=== PATIENT | female | born 1960 | race African-American/Black ===

== ENCOUNTER 2019-03-16 16:08 | Inpatient (IN) | payer OTHER ==
[2019-03-16 18:56] VITALS: BMI 25.7
--- NOTE | 2019-03-16 21:18 | HP ---
COWS - Scale Resting Pulse: 0= [place] 80 or Below Sweatin= Chills/Flushing Restless Observation: 0= Sits Still Pupil Size: 0= Normal to Room Light Bone or Joint Aches: 4=Acute Joint/Muscle Pain Runny Nose/ Eye Tearin= Runny Nose/Eyes GI Upset > 30mins: 2= Nausea/Diarrhea Tremor Observation: 0= None Yawning Observation: 2= >3x During Session Anxiety or Irritability: 0= None Goose Flesh Skin: 0=Smooth Skin COWS Score: 11 CIWA Score - Admission Criteria OASAS Guidelines: Admission for Medically Managed Detox: Requires at least one of the followin. CIWA greater than 12 2. Seizures within the past 24 hours 3. Delirium tremens within the past 24 hours 4. Hallucinations within the past 24 hours 5. Acute intervention needed for co occurring medical disorder 6. Acute intervention needed for co occurring psychiatric disorder 7. Severe withdrawal that cannot be handled at a lower level of care (continued vomiting, continued diarrhea, abnormal vital signs) requiring intravenous medication and/or fluids 8. Admitting History and Physical - Past Medical History Cardiovascular: Yes: HTN Infectious Disease: Yes: HIV Psych: Yes: Addictions, Bipolar - Smoking History Smoking history: Current every day smoker Have you smoked in the past 12 months: Yes Aproximately how many cigarettes per day: 4 - Alcohol/Substance Use Hx Alcohol Use: Yes Number of Drinks Daily: 2 History of Substance Use: reports: Cocaine, Heroin, Marijuana, Prescription - Social History ADL: Independent History of Recent Travel: No Admission ROS [facility] Chief Complaint: SEEKING DETOX Allergies/Adverse Reactions: Allergies Allergy/AdvReac Type Severity Reaction Status Date / Time No Known Allergies Allergy Verified 03/16/19 18:49 History of Present Illness: HERE FOR SUBOXONE DETOX. CLIENT IS REFERRED BY [facility]. FIRST ADMISSION HERE. PRESNTS WITH C/O WITHDRAWAL SX'S. SEEKING DETOX WITH METHADONE SHE WOULD LIKE TO GET ON A METHADONE PROGRAM. DENIES HX/O DRUG OVERDOSE, SEIZURE, BLACK OUTS. SHE REPORTS COCAINE ABUSE. HX/O IVDU A FEW YEARS AGO. . REPORTS SHE WAS INCARCERATED FOR 8.5 YEARS RELEASED 4 WEEKS AGO AND STARTED USING STREET SUBOXONE. PATIENT LIVES WITH [employer], UNEMPLOYED, [place]. Exam Limitations: No Limitations - Ebola screening Have you traveled outside of the country in the last 21 days: No (N) Have you had contact with anyone from an Ebola affected area: No Do you have a fever: No - Review of Systems Constitutional: Chills, Malaise, Night Sweats EENT: reports: Other (TOP DENTURES) Respiratory: reports: No Symptoms reported Cardiac: reports: No Symptoms Reported GI: reports: Abdominal cramping : reports: Incontinence Musculoskeletal: reports: Back Pain Integumentary: reports: No Symptoms Reported Neuro: reports: No Symptoms reported Endocrine: reports: Other (HX/O DM) Hematology: reports: No Symptoms Reported Psychiatric: reports: Orientated x3, Depressed (DENIES SI/HI) Other Systems: Reviewed and Negative Patient History - Patient Medical History Hx Anemia: No Hx Asthma: No Hx Chronic Obstructive Pulmonary Disease (COPD): No Hx Cancer: No Hx Cardiac Disorders: No Hx Congestive Heart Failure: No Hx Hypertension: Yes Hx Hypercholesterolemia: No Hx Pacemaker: No HX Cerebrovascular Accident: No Hx Seizures: No Hx Dementia: No Hx Diabetes: Yes Hx Gastrointestinal Disorders: No Hx Liver Disease: No Hx Genitourinary Disorders: Yes (INCONTINENCE) Hx Sexually Transmitted Disorders: No Hx Renal Disease (ESRD): No Hx Thyroid Disease: No Hx Human Immunodeficiency Virus (HIV): Yes (IVDU- DX 1987) Hx Hepatitis C: Yes (TX'ED) Hx Depression: Yes Hx Suicide Attempt: No Hx Bipolar Disorder: Yes Hx Schizophrenia: No Other Medical History: DENIES - Patient Surgical History Past Surgical History: No - PPD History Previous Implant?: Yes Documented Results: Negative w/o proof Implanted On Prior R Admission?: No PPD to be Administered?: No - Reproductive History LMP comment: MENAPAUSE Patient : No (NEG [facility]) - Smoking Cessation Smoking history: Current every day smoker Have you smoked in the past 12 months: Yes Aproximately how many cigarettes per day: 4 Cigars Per Day: 0 Hx Chewing Tobacco Use: No Initiated information on smoking cessation: Yes 'Breaking Loose' booklet given: 03/16/19 - Substance & Tx. History Hx Alcohol Use: No Hx Substance Use: Yes Substance Use Type: Opiates (SUBOXONE) Hx Substance Use Treatment: Yes ([facility]) - Substances abused Cocaine Amount used: 8 VIALS Age of first use: 19 Date of last use: 03/16/19 Crack Substance route: Smoking Frequency: Daily Amount used: 8 VIALS Age of first use: 19 Date of last use: 03/16/19 Buprenorphine Other (specify): 12mg Substance route: Oral Frequency: Daily Amount used: 10 film Age of first use: 51 Date of last use: 03/16/19 Admission Physical Exam S - Vital Signs Vital Signs: Vital Signs - 24 hr 03/16/19 18:51 Temperature 98.6 F Pulse Rate 69 Respiratory 20 Rate Blood Pressure 141/86 - Physical General Appearance: Yes: Mild Distress, Tremorous (FELT), Other ([place]) HEENTM: Yes: EOMI, Normocephalic, Normal Voice, ANDREA, Other Respiratory: Yes: Chest Non-Tender, Lungs Clear, Normal Breath Sounds, No Respiratory Distress, No Accessory Muscle Use Neck: Yes: No masses,lesions,Nodules, Supple, Trachea in good position Breast: Yes: Breasts Symetrical Cardiology: Yes: Regular Rhythm, Regular Rate Abdominal: Yes: Non Tender, Soft, Increased Bowel Sounds Genitourinary: Yes: Within Normal Limits Back: Yes: Normal Inspection Musculoskeletal: Yes: full range of Motion, Gait Steady Extremities: Yes: Normal Capillary Refill, Normal Inspection, Normal Range of Motion, Non-Tender Neurological: Yes: Fully Oriented, Alert, Depressed Affect Integumentary: Yes: Normal Color, Dry, Warm Lymphatic: Yes: Within Normal Limits - Diagnostic (1) Opioid dependence with withdrawal Current Visit: Yes Status: Acute (2) Cocaine dependence, uncomplicated Current Visit: Yes Status: Acute (3) HCV (hepatitis C virus) Current Visit: Yes Status: Resolved Comment: TREATED (4) HIV (human immunodeficiency virus infection) Current Visit: Yes Status: Chronic Qualifiers: HIV symptom status: unspecified Qualified Code(s): B20 - Human immunodeficiency virus [HIV] disease (5) Incontinence in female Current Visit: Yes Status: Chronic (6) Diabetes Current Visit: Yes Status: Chronic Qualifiers: Diabetes mellitus type: type 2 Comment: CLIENT REPORTS LANTUS 6 UNIT Q HS. HAS NOT TAKEN IN 1 MONTH (7) HTN (hypertension) Current Visit: Yes Status: Chronic Qualifiers: Hypertension type: essential hypertension Qualified Code(s): I10 - Essential (primary) hypertension (8) Psychiatric disorder Current Visit: Yes Status: Chronic (9) Depressed affect Current Visit: Yes Status: Acute Cleared for Admission S - Detox or Rehab [facility] Level of Care: Medically Managed Detox Regimen/Protocol: Methadone Claeared for Rehab Admission: No Breathalyzer - Breathalyzer Breathalyzer: 0 Urine Drug Screen - Test Device Lot number: [id number] Expiration date: 11/01/20 - Control Is test valid?: Yes - Results Drug screen NEGATIVE: No Urine drug screen results: DOMINICK-Cocaine, BUP-Suboxone Inpatient Rehab Admission - Rehab Decision to Admit Inpatient rehab admission?: No
[2019-03-16] MEDS ORDERED: MAG HYDROX/AL HYDROX/SIMETH 30 ML UNIT-DOSE CUP PO PRN (21:36)
[2019-03-16] MEDS ORDERED: MAGNESIUM CITRATE 300 ML BOTTLE PO PRN (21:36)
[2019-03-16] MEDS ORDERED: DICYCLOMINE HCL 10 MG CAPSULE PO PRN (21:36)
[2019-03-16] MEDS ORDERED: IBUPROFEN 400 MG TABLET (FP) PO PRN (21:36)
[2019-03-16] MEDS ORDERED: MAGNESIUM HYDROX 2400MG/30ML ORAL SUSPENSION 30 ML CUP PO PRN (21:36)
[2019-03-16] MEDS ORDERED: guaiFENesin 200 MG/10 ML 10 ML UNIT-DOSE CUPS PO PRN (21:36)
[2019-03-16] MEDS ORDERED: MENTHOL/PHENOL 1 EACH UD MM PRN (21:36)
[2019-03-16] MEDS ORDERED: ONDANSETRON *ODT* 4 MG TABLET SL PRN (21:36)
[2019-03-16] MEDS ORDERED: P-EPHED 60MG/TRIPROLIDI 2.5MG TABLET PO PRN (21:36)
[2019-03-16] MEDS ORDERED: BISMUTH SUBSALICYLATE 524 MG/30 ML UD PO PRN (21:36)
[2019-03-16] MEDS ORDERED: hydrOXYzine PAMOATE 25 MG CAPSULE (FP) PO PRN (21:36)
[2019-03-16] MEDS ORDERED: ACETAMINOPHEN 325 MG TABLET (FP) PO PRN ×2 (21:36)
[2019-03-16] MEDS ORDERED: METHOCARBAMOL 500 MG TABLET PO PRN (21:36)
[2019-03-16] MEDS ORDERED: METHADONE HCL 10 MG TABLET (FOR DETOX USE ONLY) PO ONE (21:45)
[2019-03-16] MEDS ORDERED: cloNIDine HCL 0.1 MG TABLET PO PRN (21:45)
[2019-03-16] MEDS: THIAMINE HCL 100 MG TABLET (FP) PO SCH (23:03)
[2019-03-17] MEDS ORDERED: METHADONE HCL 10 MG TABLET (FOR DETOX USE ONLY) ONE (09:14)
[2019-03-17] MEDS ORDERED: METHADONE HCL 5 MG TABLET (FOR DETOX USE ONLY) ONE (09:14)
[2019-03-17] MEDS ORDERED: METHADONE (DETOX) 20 MG, METHADONE (DETOX) 5 MG PO ONE (10:00)
--- NOTE | 2019-03-17 10:12 | PN ---
BHS COWS - Scale Resting Pulse: 1= [place] 81-100 Sweatin= Chills/Flushing Restless Observation: 1= Difficult to Sit Still Pupil Size: 1= Pupils >than Normal Bone or Joint Aches: 1= Mild Discomfort Runny Nose/ Eye Tearin= Nasal Congestion GI Upset > 30mins: 0= None Tremor Observation of Outstretched Hands: 0= None Yawning Observation: 0= None Anxiety or Irritability: 1=Feels Anxious/Irritable Goose Flesh Skin: 0=Smooth Skin COWS Score: 7 BHS Progress Note (SOAP) Subjective: Pt here for detox- was taking large quanitites of suboxone- switched to methadone detox, would like to go to methadone MAT O: Vital Signs - 24 hr 03/16/19 03/17/19 03/17/19 18:51 00:30 03:30 Temperature 98.6 F Pulse Rate 69 Respiratory 20 18 18 Rate Blood Pressure 141/86 03/17/19 06:00 Temperature 98.2 F Pulse Rate 57 L Respiratory 18 Rate Blood Pressure 125/78 labs pending a/p: OUD- continue methadone detox
--- NOTE | 2019-03-17 10:23 | EKG ---
Test Reason : Blood Pressure : / mmHG Vent. Rate : 062 BPM Atrial Rate : 062 BPM P-R Int : 158 ms QRS Dur : 084 ms QT Int : 442 ms P-R-T Axes : 074 040 044 degrees QTc Int : 448 ms NORMAL SINUS RHYTHM NORMAL ECG NO PREVIOUS ECGS AVAILABLE Confirmed by DENIA DE SOUZA MD ([id number]) on 03/17/2019 10:22:56 AM Referred By: Confirmed By:DENIA DE SOUZA MD
[2019-03-17] MEDS: PRENATAL VITAMINS W/ FOLIC ACID TABLET (FP) PO SCH (10:38)
[2019-03-17 10:39] LABS: HEMATOCRIT 36.7 % (32.4-45.2); HEMOGLOBIN 12.2 GM/dL (10.7-15.3); MCH 29.9 pg (25.7-33.7); MCHC 33.2 g/dl (32.0-36.0); MEAN CELL VOLUME 90.2 fl (80-96); MEAN PLT VOLUME 8.4 fl (7.5-11.1); PLATELET COUNT 240 K/MM3 (134-434); RBC 4.06 M/mm3 (3.60-5.2); RDW 12.8 % (11.6-15.6); WHITE BLOOD COUNT 4.8 K/mm3 (4.0-10.0)
[2019-03-17] MEDS: LISINOPRIL 5 MG TABLET (FP) PO SCH (10:39)
[2019-03-17 10:45] LABS: ALBUMIN 3.3 g/dl (3.4-5.0); BILIRUBIN,TOTAL 0.2 mg/dL (0.2-1); BLOOD UREA NITROGEN 14.9 mg/dL (7-18); CALCIUM 9.3 mg/dL (8.5-10.1); POTASSIUM 4.3 mmol/L (3.5-5.1); TOT PROT 6.8 g/dl (6.4-8.2)
[2019-03-17] MEDS: OXYBUTYNIN CHLORIDE 5 MG TABLET PO SCH (11:08)
--- NOTE | 2019-03-17 15:38 | CONSULT ---
[facility] Psychiatric Consult - Data Date of interview: 03/17/19 Admission source: [facility] Identifying data: First admission to [facility] for this 59 y/o AA female self- referred for detoxification. REJI issues : heroin, cocaine, cannabis, nicotine. Interviewed at [address] [place] [address]. Patient is single, mother of one, [facility] unemployed and supported on welfare ( [employer]). Substance Abuse History: Discussed with patient. Details in current [facility] report as follows : Smoking history: Current every day smoker. Have you smoked in the past 12 months: Yes. Aproximately how many cigarettes per day: 4. Cigars Per Day: 0. Hx Chewing Tobacco Use: No. Initiated information on smoking cessation : Yes. 'Breaking Loose' booklet given: 03/16/19. - Substance & Tx. History. Hx Alcohol Use: No. Hx Substance Use: Yes. Substance Use Type: Opiates ( SUBOXONE). [facility]x [facility] - Substances abused. Cocaine. Amount used: 8 VIALS. Age of first use: 19. Date of last use: 03/16/19. Crack. Substance route: Smoking. Frequency: Daily. Amount used: 8 VIALS. Age of first use: 19. Date of last use: 03/16/19. Buprenorphine. Other (specify): 12mg. Substance route: Oral. Frequency: Daily. Amount used: 10 film. Age of first use: 51. Date of last use: 03/16/19 Medical History: Medical profile is remarkable for diabetes mellitus, HIV infection since 1987 and hypertension. Psychiatric History: No reported history of psychiatric hospitalizations. Patient reports that she has been diagnosed with Bipolar Disorder and maintained on a regimen of wellbutrin + abilify + trileptal (doses not recalled) . Ms Callahan indicates past psychiatric follow-up at an unnamed [facility]PD clinic in [place] ([id number]). Lost to OPD care at this time. Has received psychotropic medications (listed above) during her incarceration (was released robin last month). Patient denies history of suicide attempts. 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 Set for parole until 2023. Additional Comment: Urine drug screen results: DOMINICK-Cocaine, BUP-Suboxone. Noted. Mental Status Exam - Mental Status Exam Alert and Oriented to: Time, Place, Person Cognitive Function: Good Patient Appearance: Well Groomed Mood: Withdrawn, Hopeful Affect: Mood Congruent, Constricted Patient Behavior: Fatigued, Appropriate, Cooperative Speech Pattern: Clear, Appropriate Voice Loudness: Normal Thought Process: Intact, Goal Oriented Thought Disorder: Not Present Hallucinations: Denies Suicidal Ideation: Denies Homicidal Ideation: Denies Insight/Judgement: Poor Sleep: Poorly, Difficulty falling asleep Appetite: Good Gait/Station: Normal Psychiatric Findings - Problem List ([place] 1, 2,3) (1) Opioid dependence with withdrawal Current Visit: Yes Status: Acute (2) Cocaine dependence, uncomplicated Current Visit: Yes Status: Chronic (3) Nicotine dependence Current Visit: Yes Status: Chronic (4) Substance induced mood disorder Current Visit: Yes Status: Chronic (5) Bipolar disorder Current Visit: Yes Status: Chronic Comment: As per self-report. - Initial Treatment Plan Initial Treatment Plan: Psychoeducation. Sleep hygiene. Detoxification. Support. Contact made with pharmacist at [facility] ([phone]) : no file on patient. Medications cannot be verified. However, the patient is noted as a good, clear historian. [place] as reliable. Will resume medications ( cautiously) as follows : abilify 5 mg po daily + wellbutrin 75 mg po daily + trileptal 300 mg po bid (all doses are reduced until verification). Medications are resumed in order to prevent decompensation from further delaying treatment. Side effects/benefits of each drug are discussed with patient. Ms Callahan is in agreement with this plan of care. Electrolytes checked : Na is normal. Observation.
[2019-03-17] MEDS: THIAMINE HCL 100 MG TABLET (FP) PO SCH (22:20)
[2019-03-17] MEDS: OXcarbazepine 300 MG TABLET (UD) PO SCH (22:22)
[2019-03-17] MEDS: MELATONIN 5 MG TABLETS PO PRN (22:22)
[2019-03-18] MEDS ORDERED: METHADONE HCL 10 MG TABLET (FOR DETOX USE ONLY) PO ONE (10:00)
[2019-03-18] MEDS: PRENATAL VITAMINS W/ FOLIC ACID TABLET (FP) PO SCH (10:34)
[2019-03-18] MEDS: buPROPion HCL 75 MG TABLET PO SCH (10:34)
[2019-03-18] MEDS: OXYBUTYNIN CHLORIDE 5 MG TABLET PO SCH (10:34)
[2019-03-18] MEDS: ARIPiprazole 5 MG TABLET (FP) PO SCH (10:34)
[2019-03-18] MEDS: OXcarbazepine 300 MG TABLET (UD) PO SCH ×2 (10:34→22:00)
[2019-03-18] MEDS: LISINOPRIL 5 MG TABLET (FP) PO SCH (10:34)
--- NOTE | 2019-03-18 18:16 | PN ---
BHS COWS - Scale Resting Pulse: 0= [place] 80 or Below Sweatin= Chills/Flushing Restless Observation: 3= Extraneous Movement Pupil Size: 0= Normal to Room Light Bone or Joint Aches: 2= Severe Diffuse Aches Runny Nose/ Eye Tearin= Runny Nose/Eyes GI Upset > 30mins: 1= Stomach Cramp Tremor Observation of Outstretched Hands: 2= Slight Tremor Visible Yawning Observation: 0= None Anxiety or Irritability: 2=Irritable/Anxious Goose Flesh Skin: 0=Smooth Skin COWS Score: 13 BHS Progress Note (SOAP) Subjective: Lightheaded (encouraged PO water intake), sweating, chills, tremor, interrupted sleep Objective: 03/18/19 18:15 Last Vital Signs Temp Pulse Resp BP Pulse Ox 98.2 F 57 L 16 131/78 03/18/19 17:50 03/18/19 17:50 03/18/19 17:50 03/18/19 17:50 Laboratory Tests 03/17/19 03/17/19 03/17/19 07:28 08:10 08:10 WBC 4.8 RBC 4.06 Hgb 12.2 Hct 36.7 MCV 90.2 MCH 29.9 MCHC 33.2 RDW 12.8 Plt Count 240 MPV 8.4 Sodium 141 Potassium 4.3 Chloride 107 Carbon Dioxide 28 Anion Gap 5 L BUN 14.9 Creatinine 1.0 Est GFR (CKD-EPI)AfAm 71.92 Est GFR (CKD-EPI)NonAf 62.05 POC Glucometer 81 Random Glucose 79 Calcium 9.3 Total Bilirubin 0.2 AST 19 ALT 22 Alkaline Phosphatase 102 Total Protein 6.8 Albumin 3.3 L RPR Titer 03/17/19 08:10 WBC RBC Hgb Hct MCV MCH MCHC RDW Plt Count MPV Sodium Potassium Chloride Carbon Dioxide Anion Gap BUN Creatinine Est GFR (CKD-EPI)AfAm Est GFR (CKD-EPI)NonAf POC Glucometer Random Glucose Calcium Total Bilirubin AST ALT Alkaline Phosphatase Total Protein Albumin RPR Titer Nonreactive Labs reviewed Assessment: 03/18/19 18:15 Withdrawal sxs Plan: Continue detox Encouraged PO water intake
[2019-03-18] MEDS: THIAMINE HCL 100 MG TABLET (FP) PO SCH (22:00)
[2019-03-19] MEDS ORDERED: METHADONE HCL 5 MG TABLET (FOR DETOX USE ONLY) ONE (08:50)
[2019-03-19] MEDS ORDERED: METHADONE HCL 10 MG TABLET (FOR DETOX USE ONLY) ONE (08:50)
[2019-03-19] MEDS ORDERED: METHADONE (DETOX) 10 MG, METHADONE (DETOX) 5 MG PO ONE (10:00)
[2019-03-19] MEDS: buPROPion HCL 75 MG TABLET PO SCH (10:21)
[2019-03-19] MEDS: OXYBUTYNIN CHLORIDE 5 MG TABLET PO SCH (10:21)
[2019-03-19] MEDS: PRENATAL VITAMINS W/ FOLIC ACID TABLET (FP) PO SCH (10:21)
[2019-03-19] MEDS: ARIPiprazole 5 MG TABLET (FP) PO SCH (10:21)
[2019-03-19] MEDS: LISINOPRIL 5 MG TABLET (FP) PO SCH (10:21)
[2019-03-19] MEDS: OXcarbazepine 300 MG TABLET (UD) PO SCH ×2 (10:21→21:45)
--- NOTE | 2019-03-19 13:51 | PN ---
BHS COWS - Scale Resting Pulse: 0= [place] 80 or Below Sweatin= Chills/Flushing Restless Observation: 1= Difficult to Sit Still Pupil Size: 0= Normal to Room Light Bone or Joint Aches: 1= Mild Discomfort Runny Nose/ Eye Tearin= Nasal Congestion GI Upset > 30mins: 0= None Tremor Observation of Outstretched Hands: 1= Tremor [place], Not Seen Yawning Observation: 1= 1-2x During Session Anxiety or Irritability: 2=Irritable/Anxious Goose Flesh Skin: 0=Smooth Skin COWS Score: 8 BHS Progress Note (SOAP) Subjective: sweats shakes irritable Objective: 03/19/19 13:50 Vital Signs Temperature 97.9 F 03/19/19 10:07 Pulse Rate 76 03/19/19 10:07 Respiratory Rate 18 03/19/19 10:07 Blood Pressure 127/79 03/19/19 10:07 O2 Sat by Pulse Oximetry (%) Laboratory Tests 03/16/19 03/17/19 03/17/19 19:21 07:28 08:10 WBC 4.8 RBC 4.06 Hgb 12.2 Hct 36.7 MCV 90.2 MCH 29.9 MCHC 33.2 RDW 12.8 Plt Count 240 MPV 8.4 Sodium Potassium Chloride Carbon Dioxide Anion Gap BUN Creatinine Est GFR (CKD-EPI)AfAm Est GFR (CKD-EPI)NonAf POC Glucometer 81 Random Glucose Calcium Total Bilirubin AST ALT Alkaline Phosphatase Total Protein Albumin POC Urine HCG, Qual Negative RPR Titer 03/17/19 03/17/19 08:10 08:10 WBC RBC Hgb Hct MCV MCH MCHC RDW Plt Count MPV Sodium 141 Potassium 4.3 Chloride 107 Carbon Dioxide 28 Anion Gap 5 L BUN 14.9 Creatinine 1.0 Est GFR (CKD-EPI)AfAm 71.92 Est GFR (CKD-EPI)NonAf 62.05 POC Glucometer Random Glucose 79 Calcium 9.3 Total Bilirubin 0.2 AST 19 ALT 22 Alkaline Phosphatase 102 Total Protein 6.8 Albumin 3.3 L POC Urine HCG, Qual RPR Titer Nonreactive aaox3 ambulating no acute distress Assessment: 03/19/19 13:51 withdrawal sx Plan: continue detox increase fluids
[2019-03-19] MEDS: NICOTINE POLACRILEX 2 MG GUM BUC PRN (15:08)
[2019-03-19] MEDS: MELATONIN 5 MG TABLETS PO PRN (21:45)
[2019-03-19] MEDS: THIAMINE HCL 100 MG TABLET (FP) PO SCH (21:46)
[2019-03-20] MEDS ORDERED: METHADONE HCL 10 MG TABLET (FOR DETOX USE ONLY) PO ONE (10:00)
[2019-03-20] MEDS: OXYBUTYNIN CHLORIDE 5 MG TABLET PO SCH (10:03)
[2019-03-20] MEDS: LISINOPRIL 5 MG TABLET (FP) PO SCH (10:03)
[2019-03-20] MEDS: PRENATAL VITAMINS W/ FOLIC ACID TABLET (FP) PO SCH (10:04)
[2019-03-20] MEDS: OXcarbazepine 300 MG TABLET (UD) PO SCH ×2 (10:04→22:00)
[2019-03-20] MEDS: ARIPiprazole 5 MG TABLET (FP) PO SCH (10:04)
[2019-03-20] MEDS: buPROPion HCL 75 MG TABLET PO SCH (10:05)
--- NOTE | 2019-03-20 10:43 | PN ---
BHS COWS - Scale Resting Pulse: 0= [place] 80 or Below Sweatin= Chills/Flushing Restless Observation: 1= Difficult to Sit Still Pupil Size: 0= Normal to Room Light Bone or Joint Aches: 1= Mild Discomfort Runny Nose/ Eye Tearin= Nasal Congestion GI Upset > 30mins: 0= None Tremor Observation of Outstretched Hands: 0= None Yawning Observation: 0= None Anxiety or Irritability: 0= None Goose Flesh Skin: 0=Smooth Skin COWS Score: 4 BHS Progress Note (SOAP) Subjective: feeling better sweats Objective: 03/20/19 10:43 Vital Signs Temperature 97.7 F 03/20/19 09:34 Pulse Rate 56 L 03/20/19 09:34 Respiratory Rate 17 03/20/19 09:34 Blood Pressure 138/78 03/20/19 09:34 O2 Sat by Pulse Oximetry (%) aaox3 ambulating no acute distress Assessment: 03/20/19 10:43 mild withdrawals Plan: continue detox d/c in am
[2019-03-20] MEDS: NICOTINE POLACRILEX 2 MG GUM BUC PRN (14:17)
--- NOTE | 2019-03-20 19:08 | PN ---
[facility] Progress Note Note: Psychiatry Attending's note (follow-up) : Referral papers seen today. Wellbutrin + trileptal confirmed. No aripriprazole listed but patient insists on being on Abilify. Ms Callahan can be trusted as a good and reliable historian. She did well on the current regimen. Active. Well-groomed. Pleasant. Cognitively intact. Euthymic. Stable mental status. Medications : well tolerated. Scripts sent electronically to [facility] [address] [place] [address] [phone]. Patient is made aware and given the full address + telephone number of [facility].
[2019-03-20 21:00] VITALS: PULSE 55
[2019-03-20] MEDS: MELATONIN 5 MG TABLETS PO PRN (22:00)
[2019-03-20] MEDS: THIAMINE HCL 100 MG TABLET (FP) PO SCH (22:00)
[2019-03-21] MEDS ORDERED: METHADONE HCL 5 MG TABLET (FOR DETOX USE ONLY) PO ONE (06:00)
[2019-03-21 07:10] VITALS: BP 140/94; TEMP 97
--- NOTE | 2019-03-21 09:36 | DS ---
[facility] Detox Discharge Summary Admission Date: 03/16/19 Discharge Date: 03/21/19 - History Present History: Cocaine Dependence, Opioid Dependence - Physical Exam Results Vital Signs: Vital Signs Temperature 97 F L 03/21/19 05:00 Pulse Rate 55 L 03/21/19 05:00 Respiratory Rate 18 03/21/19 05:00 Blood Pressure 140/94 03/21/19 05:00 O2 Sat by Pulse Oximetry (%) Pertinent Admission Physical Exam Findings: Vital Signs Temperature 97 F L 03/21/19 05:00 Pulse Rate 55 L 03/21/19 05:00 Respiratory Rate 18 03/21/19 05:00 Blood Pressure 140/94 03/21/19 05:00 O2 Sat by Pulse Oximetry (%) Laboratory Tests 03/16/19 03/17/19 03/17/19 19:21 07:28 08:10 WBC 4.8 RBC 4.06 Hgb 12.2 Hct 36.7 MCV 90.2 MCH 29.9 MCHC 33.2 RDW 12.8 Plt Count 240 MPV 8.4 Sodium Potassium Chloride Carbon Dioxide Anion Gap BUN Creatinine Est GFR (CKD-EPI)AfAm Est GFR (CKD-EPI)NonAf POC Glucometer 81 Random Glucose Calcium Total Bilirubin AST ALT Alkaline Phosphatase Total Protein Albumin POC Urine HCG, Qual Negative RPR Titer 03/17/19 03/17/19 03/20/19 08:10 08:10 06:47 WBC RBC Hgb Hct MCV MCH MCHC RDW Plt Count MPV Sodium 141 Potassium 4.3 Chloride 107 Carbon Dioxide 28 Anion Gap 5 L BUN 14.9 Creatinine 1.0 Est GFR (CKD-EPI)AfAm 71.92 Est GFR (CKD-EPI)NonAf 62.05 POC Glucometer 122 Random Glucose 79 Calcium 9.3 Total Bilirubin 0.2 AST 19 ALT 22 Alkaline Phosphatase 102 Total Protein 6.8 Albumin 3.3 L POC Urine HCG, Qual RPR Titer Nonreactive 03/21/19 05:54 WBC RBC Hgb Hct MCV MCH MCHC RDW Plt Count MPV Sodium Potassium Chloride Carbon Dioxide Anion Gap BUN Creatinine Est GFR (CKD-EPI)AfAm Est GFR (CKD-EPI)NonAf POC Glucometer 80 Random Glucose Calcium Total Bilirubin AST ALT Alkaline Phosphatase Total Protein Albumin POC Urine HCG, Qual RPR Titer aaox3 ambulating no acute distress - Treatment Hospital Course: Detox Protocol Followed, Detoxed Safely, Responded well, Discharged Condition Good, Rehab Referral Accepted Patient has Accepted a Rehab Referral to: pt declined - Medication Discharge Medications: Ambulatory Orders Aripiprazole [Abilify -] 10 mg PO DAILY 03/05/19 Bupropion HCl [Wellbutrin -] 100 mg PO BID 03/05/19 Lisinopril [Zestril] 2.5 mg PO DAILY 03/05/19 Oxcarbazepine [Trileptal -] 300 mg PO DAILY 03/05/19 Oxcarbazepine [Trileptal] 600 mg PO HS 03/05/19 Oxybutynin Chloride [Ditropan -] 5 mg PO DAILY 03/05/19 Aripiprazole [Abilify] 5 mg PO DAILY #30 tablet 03/20/19 Bupropion HCl 100 mg PO DAILY #30 tablet 03/20/19 Oxcarbazepine [Trileptal] 300 mg PO BID #60 tablet 03/20/19 - Diagnosis (1) Depressed affect Status: Acute (2) Opiate abuse, continuous Status: Acute (3) Opioid dependence with withdrawal Status: Acute (4) Bipolar disorder Status: Chronic (5) Cocaine dependence, uncomplicated Status: Chronic (6) Diabetes Status: Chronic Qualifiers: Diabetes mellitus type: type 2 (7) HIV (human immunodeficiency virus infection) Status: Chronic Qualifiers: HIV symptom status: unspecified Qualified Code(s): B20 - Human immunodeficiency virus [HIV] disease (8) HTN (hypertension) Status: Chronic Qualifiers: Hypertension type: essential hypertension Qualified Code(s): I10 - Essential (primary) hypertension (9) Incontinence in female Status: Chronic (10) Nicotine dependence Status: Chronic (11) Psychiatric disorder Status: Chronic (12) Substance induced mood disorder Status: Chronic - AMA Did Patient Leave Against Medical Advice: No
== END 2019-03-21 07:30 | disposition home or self-care (01) | DRG 773 ==
LOC: YASAS 16:08 → Y6N 21:50
PROVIDERS: ADMIT Allergy & Immunology; ATTEND Allergy & Immunology
PROC: HZ2ZZZZ Detoxification Services for Substance Abuse Treatment (ICD-10-PCS; principal; 2019-03-16)
DX: F11.23 Opioid dependence with withdrawal (principal); F14.20 Cocaine dependence, uncomplicated; F17.210 Nicotine dependence, cigarettes, uncomplicated; F99 Mental disorder, not otherwise specified; F19.24 Other psychoactive substance dependence with psychoactive substance-induced mood disorder; F31.9 Bipolar disorder, unspecified; I10 Essential (primary) hypertension; E11.9 Type 2 diabetes mellitus without complications; B20 Human immunodeficiency virus [HIV] disease; R32 Unspecified urinary incontinence; Z86.19 Personal history of other infectious and parasitic diseases; Z56.0 Unemployment, unspecified
CPT/HCPCS: 36415; 80053; 81025; 82962; 85027; 86593; 93005; 93010